=== PATIENT | male | born 1955 | race Caucasian/White ===

== ENCOUNTER 2016-06-04 10:07 | Day surgery (SDC) | payer BC ==
[2016-06-02 09:55] VITALS: BMI 32.7
[~2016-06-04 10:07] MED LIST: LACTATED RINGERS 1,000 ML IV SCH; LIDOCAINE 1% 20 ML VIAL (10MG/ML) FOR IV START INTRADERMA PRN
[2016-06-04 10:39] VITALS: TEMP 98.1
[2016-06-04] MEDS ORDERED: LACTATED RINGERS 1,000 ML IV ONE (10:44)
[2016-06-04] MEDS ORDERED: LIDOCAINE 1% 20 ML VIAL (10MG/ML) FOR IV START INTRADERMA ONE (10:44)
[2016-06-04] MEDS ORDERED: PROPOFOL 10 MG/ML 20 ML VIAL IV ONE (11:09)
--- NOTE | 2016-06-04 11:16 | P.GSHP ---
History of Present Illness H&P Date: 06/04/16 Chief Complaint: Screening colonoscopy This a 60-year-old male referred from Dr. Powers. Patient presents today for screening colonoscopy. He's never had a colonoscopy before. Past Medical History Past Medical History: Hearing Disorder / Deafness, Hypertension History of Any Multi-Drug Resistant Organisms: None Reported Past Surgical History: Hernia Repair Additional Past Surgical History / Comment(s): umbilical Past Anesthesia/Blood Transfusion Reactions: No Reported Reaction Past Psychological History: No Psychological Hx Reported Smoking Status: Former smoker Past Alcohol Use History: Occasional Additional Past Alcohol Use History / Comment(s): QUIT SMOKING 2011, SMOKED FROM AGE 39 3 CIGARETTES DAILY Past Drug Use History: None Reported - Past Family History Mother Family Medical History: Unable to Obtain Additional Family Medical History / Comment(s): states was not raised with parents so unable to give family history Medications and Allergies Home Medications Medication Instructions Recorded Confirmed Type Lisinopril [Prinivil] 20 mg PO DAILY 11/08/15 06/04/16 History Allergies Allergy/AdvReac Type Severity Reaction Status Date / Time No Known Allergies Allergy Verified 06/04/16 10:31 Surgical - Exam Vital Signs Temp Pulse BP Pulse Ox 98.1 F 60 136/66 99 06/04/16 10:38 06/04/16 10:38 06/04/16 10:38 06/04/16 10:38 - General well developed, no distress - Eyes PERRL - ENT normal pinna - Neck no masses - Respiratory normal expansion - Cardiovascular Rhythm: regular - Abdomen Abdomen: soft, non tender Assessment and Plan Plan: We'll perform screening colonoscopy
--- NOTE | 2016-06-04 11:31 | P.OP ---
Date of Procedure: 06/04/16 Preoperative Diagnosis: Screening colonoscopy Postoperative Diagnosis: Normal colon Procedure(s) Performed: Colonoscopy Anesthesia: MAC Surgeon: Irineo Lundberg Pathology: none sent Condition: stable Disposition: PACU Description of Procedure: PROCEDURE: The patient was placed on the endoscopy table in the lateral position. Digital rectal examination was performed which revealed no abnormalities. The prostate was symmetrical without nodules. Flexible colonoscope was then placed in the patient's anus and passed throughout the entire colon. The ileocecal valve was visualized. The cecum, ascending, transverse, descending and sigmoid colon were normal. The rectum was normal as well. There were no masses, polyps or diverticula noted in the entire colon. SUMMARY OF FINDINGS: Normal colonoscopy.
[2016-06-04 11:41] VITALS: RESP 16
[2016-06-04 12:17] VITALS: BP 145/83; PULSE 58
== END 2016-06-04 12:26 | disposition home or self-care (01) ==
LOC: ORWHC2ENDO 10:07
PROVIDERS: ATTEND Surgery
DX: Z12.11 Encounter for screening for malignant neoplasm of colon (principal); I10 Essential (primary) hypertension; Z87.891 Personal history of nicotine dependence; Z79.899 Other long term (current) drug therapy; Z79.891 Long term (current) use of opiate analgesic
CPT/HCPCS: J2704; G0121; 45378

== ENCOUNTER 2021-09-25 11:13 | Inpatient (IN) | payer BC, MEDICARE ==
[2021-09-25] MEDS ORDERED: SODIUM CHLORIDE 0.9% 1,000 ML IV STA (11:57)
[2021-09-25] MEDS ORDERED: ASPIRIN 81 MG PO STA (11:57)
[2021-09-25] MEDS ORDERED: HEPARIN SODIUM 1,000 UN/ML (10ML VL) IV ONE (12:06)
[2021-09-25] MEDS ORDERED: DILTIAZEM 5 MG/ML 5 ML VIAL IVP STA (12:06)
[2021-09-25] MEDS: HEPARIN SOD,PORK IN 0.45% NACL 25,000 UNIT in 0.45% NACL 1 250ML.BAG IV SCH (12:21)
[2021-09-25 12:25] LABS: Basophils # (A) 0.1 k/uL (0-0.2); Basophils % (A) 1 %; Eosinophils # (A) 0.1 k/uL (0-0.7); Eosinophils % (A) 1 %; HCT 47.1 % (39.0-53.0); HGB 14.8 gm/dL (13.0-17.5); Hypochromasia Slight; Lymphocytes # (A) 1.2 k/uL (1.0-4.8); Lymphocytes % (A) 13 %; MCH 29.2 pg (25.0-35.0); MCHC 31.4 g/dL (31.0-37.0); Mean Platelet Volume 8.4; Monocytes # (A) 0.5 k/uL (0-1.0); Monocytes % (A) 6 %; Neutrophils # (A) 6.8 k/uL (1.3-7.7); Neutrophils % (A) 77 %; Platelet Count 243 k/uL (150-450); RBC 5.06 m/uL (4.30-5.90); RDW 14.4 % (11.5-15.5); WBC 8.8 k/uL (3.8-10.6)
--- NOTE | 2021-09-25 12:38 | XR ---
EXAMINATION TYPE: XR chest 2V DATE OF EXAM: 09/25/2021 COMPARISON: NONE HISTORY: Dysrhythmia. TECHNIQUE: Frontal and lateral views of the chest are obtained. FINDINGS: There is cardiomegaly with suspected small to tiny bilateral pleural effusions and mild in terstitial edema. Correlate for CHF exacerbation. Old fractures of the right lateral fifth and sixth ribs are noted. IMPRESSION: As above.
[2021-09-25 12:49] LABS: ALT 23 U/L (4-49); AST 29 U/L (17-59); African American GFR (CKD) >90 (>60 ml/min/1.73 sqM); Albumin 4.2 g/dL (3.5-5.0); Alkaline Phosphatase 104 U/L (38-126); Anion Gap 8 mmol/L; Blood Urea Nitrogen 14 mg/dL (9-20); Calcium 9.4 mg/dL (8.4-10.2); Carbon Dioxide 25 mmol/L (22-30); Chloride 104 mmol/L (98-107); Glucose 116 mg/dL (74-99); Magnesium 1.7 mg/dL (1.6-2.3); Non-African American GFR(CKD) >90 (>60 ml/min/1.73 sqM); Potassium 4.7 mmol/L (3.5-5.1); Sodium 137 mmol/L (137-145); Total Bilirubin 1.1 mg/dL (0.2-1.3); Total Protein 7.1 g/dL (6.3-8.2)
[2021-09-25 12:52] LABS: Partial Thromboplastin Time 23.6 sec (22.0-30.0); Prothrombin Time 10.8 sec (9.0-12.0)
[2021-09-25] MEDS: DILTIAZEM 125 MG in SODIUM CHLORIDE 0.9% 100 ML IV SCH (13:09)
--- NOTE | 2021-09-25 14:38 | ED ---
General Adult HPI - General Chief complaint: Arrhythmia/Palpitations Stated complaint: A-fIB,rvr 150bts Time Seen by Provider: 09/25/21 11:53 Source: patient, RN notes reviewed, old records reviewed Mode of arrival: ambulatory Limitations: no limitations - History of Present Illness Initial comments: Patient is a 66-year-old male with past medical history remarkable for hypertension who presents emergency Department complaining of palpitations for 3 weeks. Was sent from primary care physician's office for tachycardia. Concern for atrial fibrillation. No known history of this for the patient. Patient's twin does have extensive cardiac history. He states he has been experiencing lower extremity swelling, nonproductive cough, as well as palpitations and chest tightness intermittently over the last 3 weeks. Saw his PCP today, who found him to be in A. fib with RVR. Denies any lightheadedness, current chest discomfort, shortness of breath, history of blood clots. Denies any abdominal pain, nausea, vomiting. Patient otherwise has no acute complaints at this time. Presents for further evaluation. - Related Data Home Medications Medication Instructions Recorded Confirmed amLODIPine [Norvasc] 5 mg PO DAILY 09/25/21 09/25/21 hydroCHLOROthiazide 12.5 mg PO DAILY 09/25/21 09/25/21 lisinopriL 40 mg PO DAILY 09/25/21 09/25/21 Allergies Allergy/AdvReac Type Severity Reaction Status Date / Time No Known Allergies Allergy Verified 09/25/21 13:22 Review of Systems ROS Statement: Those systems with pertinent positive or pertinent negative responses have been documented in the HPI. Review of Systems: CONST: Denies fever EYES: Denies blurry vision ENT: Denies nasal congestion C/V: Endorses palpitations RESP: Denies shortness of breath GI: Denies abdominal pain : Denies dysuria SKIN: Denies rash. MSK: Denies joint pain. NEURO: Denies headache ROS Other: All systems not noted in ROS Statement are negative. Past Medical History Past Medical History: Hearing Disorder / Deafness, Hypertension History of Any Multi-Drug Resistant Organisms: None Reported Past Surgical History: Hernia Repair Additional Past Surgical History / Comment(s): umbilical Past Anesthesia/Blood Transfusion Reactions: No Reported Reaction Past Psychological History: No Psychological Hx Reported Smoking Status: Former smoker Past Alcohol Use History: Occasional Past Drug Use History: None Reported - Past Family History Mother Family Medical History: Unable to Obtain Additional Family Medical History / Comment(s): states was not raised with parents so unable to give family history General Exam - General Exam Comments Initial Comments: General: Appears in no acute distress. HEAD: Normal with no signs of head trauma. EYES: PERRLA, EOMI, conjunctiva normal, no discharge. ENT: Hearing grossly intact, normal oropharynx. RESPIRATORY: Clear breath sounds bilaterally. No wheezes, rales, or rhonchi. No hypoxia. No increased work of breathing. C/V: Regular rate and rhythm. S1 and S2 auscultated. Peripheral pulses 2+ and intact throughout. 1-2+ pitting edema bilateral lower extremities is symmetrical. ABD: Abd is soft, nontender, nondistended EXT: Normal range of motion, no obvious deformity SKIN: No rashes or lesions observed on exposed skin. NEURO: Alert and oriented 4. 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 Vital signs are within normal limits except for his tachycardia with a regular rhythm. EKG shows atrial flutter ablation with RVR with no signs of acute ischemic process. We'll obtain cardiac labs. Chest x-ray will be obtained. Patiently started on heparin drip, Cardizem drip, will be bolus 10 mg IV Cardizem. Will be given 324 mg of aspirin. He was in agreement with this plan. Chest x-ray shows bilateral pulmonary edema, as well as a small right-sided pleural effusion. Laboratory studies are remarkable for an elevated d-dimer of 1.15. Troponin is undetectable. BNP is elevated for the patient's age to 2450. On reevaluation, patient's heart rate is now rate controlled varying from 95-110 beats per minute on average. He is on a 5 mg Cardizem drip. He remains otherwise hemodynamically stable otherwise. Vital signs within normal limits. Discussed with him the results of his laboratory studies. Recommended obtaining a CT angiogram to rule out pulmonary was which she was in agreement. CT PE showed no signs of pulmonary embolus and. Does have a small right-sided pleural effusion. After the patient on the CT imaging. He expressed understanding.. Patient will be admitted to a telemetry bed on his heparin drip and Cardizem drip for atrial fibrillation with RVR. He was in agreement this plan. Vital signs remain within normal limits at this time. He is asymptomatic at this time. Will be started on 40 valentin grams IV Lasix twice a day, however I do believe that a portion of his volume overload state is likely related to his atrial fibrillation likely been present for the last 3 weeks, undetected. Echo was ordered. Cardiology will be consulted. I spoke with the admitting physician, Dr. Benedict who accepted the patient was in agreement with the plan. Patient was admitted in stable condition to telemetry bed. - Lab Data Result diagrams: 09/25/21 12:09 09/25/21 12:09 Lab Results 09/25/21 09/25/21 09/25/21 Range/Units 12:09 12:09 12:09 WBC 8.8 (3.8-10.6) k/uL RBC 5.06 (4.30-5.90) m/uL Hgb 14.8 (13.0-17.5) gm/dL Hct 47.1 (39.0-53.0) % MCV 93.0 (80.0-100.0) fL MCH 29.2 (25.0-35.0) pg MCHC 31.4 (31.0-37.0) g/dL RDW 14.4 (11.5-15.5) % Plt Count 243 (150-450) k/uL MPV 8.4 Neutrophils % 77 % Lymphocytes % 13 % Monocytes % 6 % Eosinophils % 1 % Basophils % 1 % Neutrophils # 6.8 (1.3-7.7) k/uL Lymphocytes # 1.2 (1.0-4.8) k/uL Monocytes # 0.5 (0-1.0) k/uL Eosinophils # 0.1 (0-0.7) k/uL Basophils # 0.1 (0-0.2) k/uL Hypochromasia Slight PT 10.8 (9.0-12.0) sec INR 1.0 (<1.2) APTT 23.6 (22.0-30.0) sec D-Dimer 1.15 H (<0.60) mg/L FEU Sodium 137 (137-145) mmol/L Potassium 4.7 (3.5-5.1) mmol/L Chloride 104 (98-107) mmol/L Carbon Dioxide 25 (22-30) mmol/L Anion Gap 8 mmol/L BUN 14 (9-20) mg/dL Creatinine 0.75 (0.66-1.25) mg/dL Est GFR (CKD-EPI)AfAm >90 (>60 ml/min/1.73 sqM) Est GFR (CKD-EPI)NonAf >90 (>60 ml/min/1.73 sqM) Glucose 116 H (74-99) mg/dL Calcium 9.4 (8.4-10.2) mg/dL Magnesium 1.7 (1.6-2.3) mg/dL Total Bilirubin 1.1 (0.2-1.3) mg/dL AST 29 (17-59) U/L ALT 23 (4-49) U/L Alkaline Phosphatase 104 (38-126) U/L Troponin I (0.000-0.034) ng/mL NT-Pro-B Natriuret Pep pg/mL Total Protein 7.1 (6.3-8.2) g/dL Albumin 4.2 (3.5-5.0) g/dL TSH 4.870 H (0.465-4.680) mIU/L 09/25/21 09/25/21 Range/Units 12:09 12:10 WBC (3.8-10.6) k/uL RBC (4.30-5.90) m/uL Hgb (13.0-17.5) gm/dL Hct (39.0-53.0) % MCV (80.0-100.0) fL MCH (25.0-35.0) pg MCHC (31.0-37.0) g/dL RDW (11.5-15.5) % Plt Count (150-450) k/uL MPV Neutrophils % % Lymphocytes % % Monocytes % % Eosinophils % % Basophils % % Neutrophils # (1.3-7.7) k/uL Lymphocytes # (1.0-4.8) k/uL Monocytes # (0-1.0) k/uL Eosinophils # (0-0.7) k/uL Basophils # (0-0.2) k/uL Hypochromasia PT (9.0-12.0) sec INR (<1.2) APTT (22.0-30.0) sec D-Dimer (<0.60) mg/L FEU Sodium (137-145) mmol/L Potassium (3.5-5.1) mmol/L Chloride (98-107) mmol/L Carbon Dioxide (22-30) mmol/L Anion Gap mmol/L BUN (9-20) mg/dL Creatinine (0.66-1.25) mg/dL Est GFR (CKD-EPI)AfAm (>60 ml/min/1.73 sqM) Est GFR (CKD-EPI)NonAf (>60 ml/min/1.73 sqM) Glucose (74-99) mg/dL Calcium (8.4-10.2) mg/dL Magnesium (1.6-2.3) mg/dL Total Bilirubin (0.2-1.3) mg/dL AST (17-59) U/L ALT (4-49) U/L Alkaline Phosphatase (38-126) U/L Troponin I <0.012 (0.000-0.034) ng/mL NT-Pro-B Natriuret Pep 2450 pg/mL Total Protein (6.3-8.2) g/dL Albumin (3.5-5.0) g/dL TSH (0.465-4.680) mIU/L - EKG Data -: EKG Interpreted by Me EKG Comments: 12-lead Electrocardiogram Interpretation Note EKG was reviewed and interpreted by myself. 12-lead ECG performed at 1150 is interpreted by me as revealing atrial fibrillation with RVR at a rate of 145 beats per minute. [place] is normal. QRS duration is 85 ms. QTC is 379 ms.. There were no ST or T wave abnormalities to suggest myocardial ischemia or injury. R wave progression across the precordium was satisfactory. By my interpretation this EKG is non-diagnostic for acute ischemia. Critical Care Time Critical Care Time: Yes Total Critical Care Time: 35 Critical Care Time: Upon my evaluation, this patient had a high probability of imminent or life- threatening deterioration due to atrial fibrillation with RVR, heparin initiation, heart failure, which required my direct attention, intervention, and personal management. I have personally provided 35 minutes of critical care time exclusive of time spent on separately billable procedures. Time includes review of laboratory data, radiology results, discussion with consultants, and monitoring for potential decompensation. Interventions were performed as documented in my note. Disposition Clinical Impression: Atrial fibrillation with RVR, CHF (congestive heart failure) Disposition: ADMITTED IP TO THIS HOSP Condition: Stable Referrals: Miriam Benedict MD [Primary Care Provider] - 1-2 days Time of Disposition: 14:40
--- NOTE | 2021-09-25 14:39 | CT ---
CT CHEST FOR PULMONARY EMBOLISM. EXAMINATION TYPE: CT chest angio for PE DATE OF EXAM: 09/25/2021 INDICATION: Elevated D-dimer. Concern for PE CT DLP: 664.5 mGycm, Automated exposure control for dose reduction was used. CONTRAST: Patient injected with 100 ml mL of Isovue 370. COMPARISON: None TECHNIQUE: CT of the chest is performed on a spiral scan at 2 mm thick sections. Study is performed with intravenous contrast timed for evaluation for pulmonary embolism. This will limit additional po rtions of the evaluation. 3-D MIP images reconstructed by the technologist are reviewed on the compu ter in the coronal and sagittal planes. FINDINGS: No persistent filling defects are evident to suggest an acute pulmonary embolism. No mediastinal or hilar adenopathy enlarged by CT criteria is evident. The ascending aorta diameter at the level of the main pulmonary artery is 3.7 cm. The main pulmonary artery diameter at the bifur cation is 3.2 cm. Small right pleural effusion is present. Some compressive atelectasis adjacent to the right pleural e ffusion. Limited CT section through the upper abdomen are unremarkable. IMPRESSIONS: 1. No acute pulmonary embolism. 2. Small right pleural effusion
[2021-09-25] MEDS ORDERED: NALOXONE 0.4 MG/ML 1 ML VIAL IV PRN (14:57)
[2021-09-25] MEDS ORDERED: ONDANSETRON 4 MG/2 ML VIAL IVP PRN (14:57)
[2021-09-25] MEDS: FUROSEMIDE 10 MG/ML 4 ML VIAL IV SCH ×2 (18:02→20:36)
[2021-09-25] MEDS: HEPARIN SODIUM 1,000 UN/ML (10ML VL) IV PRN (20:36)
[2021-09-26] MEDS: DILTIAZEM 125 MG in SODIUM CHLORIDE 0.9% 100 ML IV SCH (00:19)
[2021-09-26] MEDS ORDERED: ALPRAZolam 0.25 MG TAB PO PRN ×2 (01:01→01:06)
[2021-09-26 04:04] LABS: Basophils # (A) 0.1 k/uL (0-0.2); Basophils % (A) 1 %; Eosinophils # (A) 0.3 k/uL (0-0.7); Eosinophils % (A) 3 %; HCT 45.8 % (39.0-53.0); HGB 14.2 gm/dL (13.0-17.5); Hypochromasia Moderate; Lymphocytes % (A) 23 %; MCH 29.4 pg (25.0-35.0); MCV 94.8 fL (80.0-100.0); Mean Platelet Volume 8.6; Monocytes # (A) 0.7 k/uL (0-1.0); Monocytes % (A) 8 %; Neutrophils # (A) 5.6 k/uL (1.3-7.7); Neutrophils % (A) 64 %; Platelet Count 209 k/uL (150-450); RBC 4.83 m/uL (4.30-5.90); RDW 14.3 % (11.5-15.5); WBC 8.8 k/uL (3.8-10.6)
[2021-09-26 04:14] LABS: African American GFR (CKD) >90 (>60 ml/min/1.73 sqM); Anion Gap 6 mmol/L; Blood Urea Nitrogen 12 mg/dL (9-20); Calcium 8.9 mg/dL (8.4-10.2); Carbon Dioxide 28 mmol/L (22-30); Chloride 104 mmol/L (98-107); Glucose 120 mg/dL (74-99); Non-African American GFR(CKD) >90 (>60 ml/min/1.73 sqM); Potassium 4.2 mmol/L (3.5-5.1); Sodium 138 mmol/L (137-145)
[2021-09-26 04:22] LABS: INR 1.1 (<1.2); Partial Thromboplastin Time 78.1 sec (22.0-30.0); Prothrombin Time 11.5 sec (9.0-12.0)
[2021-09-26 05:44] LABS: Appearance,Urine Clear (Clear); Bilirubin,Urine Negative (Negative); Blood,Urine Negative (Negative); Color,Urine Light Yellow; Glucose,Urine (UA) Negative (Negative); Ketones,Urine Negative (Negative); Leukocyte Esterase,Urine Negative (Negative); Nitrite,Urine Negative (Negative); PH, Urine 5.5 (5.0-8.0); Protein,Urine Negative (Negative); Specific Gravity,Urine 1.013 (1.001-1.035); Urobilinogen,Urine <2.0 mg/dL (<2.0)
[2021-09-26] MEDS: FUROSEMIDE 10 MG/ML 4 ML VIAL IV SCH ×2 (08:49→20:05)
[2021-09-26] MEDS ORDERED: lisinopriL 10 MG TAB PO SCH (10:00)
[2021-09-26] MEDS: METOPROLOL SUCCINATE (ER) 50 MG TAB.ER.24H PO SCH (11:33)
[2021-09-26] MEDS: HEPARIN SODIUM 1,000 UN/ML (10ML VL) IV PRN (11:42)
--- NOTE | 2021-09-26 12:54 | P.CRDCN ---
History of Present Illness History of present illness: HISTORY OF PRESENTING ILLNESS This is a pleasant 66-year-old male with past medical history of hypertension chronic nicotine dependence. 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 We have been consulted for new onset atrial fibrillation. Patient presents to the hospital with worsening bilateral lower extremity edema, weight gain, orthopnea, PND, shortness of breath, and palpitations . He notices symptoms started about one week ago and continued to worsen. He presented to the ER for further evaluation. He was found to be in atrial fibrillation with rapid ventricular response, heart rate in the 140s and also with signs and symptoms of congestive heart failure. He was started on IV diuresis, IV Cardizem and IV heparin. He denies any history of CAD, CO, stroke, heart failure, atrial fibrillation. He currently smokes one pack per day. Denies any alcohol or illicit drug use. Denies any known family history of coronary artery disease. DIAGNOSTICS EKG reveals atrial fibrillation with rapid ventricular response, heart rate 145. Telemetry tracings indicate atrial fibrillation with heart rate [id number] CTA revealed no evidence of pulmonary embolism. Small right pleural effusion. Laboratory reviewed, troponin negative 3, proBNP 2450, d-dimer 1.15, CBC unremarkable, sodium 138, potassium 4.2, BUN 12, serum creatinine 0.7, TSH 4.8 Current home medications include lisinopril 40 mg daily, hydrochlorothiazide 12.5 mg daily, amlodipine 5 mg daily REVIEW OF SYSTEMS At the time of my exam: CONSTITUTIONAL: Denies fever or chills. CARDIOVASCULAR: Denies chest pain, +shortness of breath, +orthopnea,+PND +palpitations. +LE edema +weight gain RESPIRATORY: Denies cough. GASTROINTESTINAL: Denies abdominal pain, diarrhea, constipation, nausea or vomiting. MUSCULOSKELETAL: Denies myalgias. NEUROLOGIC: Denies numbness, tingling, headacbe or weakness. ENDOCRINE: Denies fatigue,, polydipsia or polyurina. GENITOURINARY: Denies burning, hematuria or urgency with micturation. HEMATOLOGIC: Denies history of anemia or bleeding. PHYSICAL EXAMINATION Vitals blood pressure 136/93, heart rate 71, afebrile, saturations 94% on room air CONSTITUTIONAL: No apparent distress. HEENT: Head is normocephalic. Pupils are equal, round. Sclerae anicteric. Mucous membranes of the mouth are moist. JVD present CHEST EXAMINATION: Lungs with crackles in bilateral bases to auscultation. No ch est wall tenderness is noted on palpation or with deep breathing. HEART EXAMINATION: Irregular rate and rhythm. S1, S2 heard. No murmurs, gallops or rub. ABDOMEN: Soft, nontender. Positive bowel sounds. EXTREMITIES: 2+ peripheral pulses,Bilateral 3+ pitting lower extremity edema and no calf tenderness. SKIN: warm, dry NEUROLOGIC EXAMINATION: Patient is awake, alert and oriented x3. ASSESSMENT New onset paroxysmal atrial fibrillation with RVR -[id number] score 3 Acute heart failure exacerbation, unknown EF, echo pending History of hypertension Chronic nicotine dependence PLAN 2D echocardiogram IV Lasix 40mg BID Monitor renal function, electrolytes, I/Os, daily weights Continue IV Cardizem, wean off as able Metoprolol succinate 50mg daily Monitor BP and restart patient's Lisinopril TSH elevated, recommend evaluate thyroid studies Continue IV heparin at this time, Case management consulted for Xarelto coverage NPO after midnight if intervention/cardioversion is indicated Further recommendations based on clinical course Nurse practitioner note has been reviewed by physician. Signing provider agrees with the documented findings, assessment, and plan of care. 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 STATES HE JUST FOUND OUT TODAY HIS TWIN BROTHER ALSO HAS CARDIAC ISSUES Medications and Allergies Home Medications Medication Instructions Recorded Confirmed Type amLODIPine [Norvasc] 5 mg PO DAILY 09/25/21 09/25/21 History hydroCHLOROthiazide 12.5 mg PO DAILY 09/25/21 09/25/21 History lisinopriL 40 mg PO DAILY 09/25/21 09/25/21 History Rivaroxaban [Xarelto] 20 mg PO DAILY #30 tab 09/26/21 Rx Allergies Allergy/AdvReac Type Severity Reaction Status Date / Time No Known Allergies Allergy Verified 09/25/21 13:22 Physical Exam Vitals: Vital Signs Temp Pulse Pulse Resp BP BP Pulse Ox 09/26/21 04:00 97.4 F L 87 18 146/94 96 09/26/21 02:00 18 09/25/21 23:20 97.6 F 90 18 136/92 96 09/25/21 20:50 97.6 F 73 18 128/91 96 09/25/21 20:00 18 09/25/21 15:42 97.6 F 95 19 146/96 95 09/25/21 11:46 155 H 09/25/21 11:39 98.5 F 142 H 20 107/83 96 Intake and Output 09/25/21 09/26/21 09/26/21 22:59 06:59 14:59 Intake Total 92.667 215.503 Output Total 400 2325 Balance -307.333 -2109.497 Intake: IV 10 Invasive Line 1 10 Intake, IV Titration 82.667 215.503 Amount Diltiazem 125 mg In 109.667 Sodium Chloride 0.9% 100 ml @ Per Protocol IV .Q0M [facility] Rx#:[id number] Heparin Sod,Pork in 0.45% 82.667 105.836 NaCl 25,000 unit In 0.45 % NaCl 1 250ml.bag @ 8. 545 UNITS/KG/HR 10 mls/hr IV .Q24H [facility] Rx#: [id number] Output: Urine 400 2325 Other: Voiding Method Toilet Toilet Urinal Urinal # Voids 1 Weight 117.027 kg 114.4 kg Results 09/26/21 03:30 09/26/21 03:30 Cardiac Enzymes 09/25/21 09/25/21 09/25/21 Range/Units 12:09 12:09 16:26 AST 29 (17-59) U/L Troponin I <0.012 <0.012 (0.000-0.034) ng/mL 09/25/21 Range/Units 18:12 AST (17-59) U/L Troponin I 0.012 (0.000-0.034) ng/mL Coagulation 09/25/21 09/25/21 09/26/21 Range/Units 12:09 18:12 03:30 PT 10.8 11.5 (9.0-12.0) sec APTT 23.6 26.0 78.1 H (22.0-30.0) sec CBC 09/25/21 09/26/21 Range/Units 12:09 03:30 WBC 8.8 8.8 (3.8-10.6) k/uL RBC 5.06 4.83 (4.30-5.90) m/uL Hgb 14.8 14.2 (13.0-17.5) gm/dL Hct 47.1 45.8 (39.0-53.0) % Plt Count 243 209 (150-450) k/uL Comprehensive Metabolic Panel 09/25/21 09/26/21 Range/Units 12:09 03:30 Sodium 137 138 (137-145) mmol/L Potassium 4.7 4.2 (3.5-5.1) mmol/L Chloride 104 104 (98-107) mmol/L Carbon Dioxide 25 28 (22-30) mmol/L BUN 14 12 (9-20) mg/dL Creatinine 0.75 0.75 (0.66-1.25) mg/dL Glucose 116 H 120 H (74-99) mg/dL Calcium 9.4 8.9 (8.4-10.2) mg/dL AST 29 (17-59) U/L ALT 23 (4-49) U/L Alkaline Phosphatase 104 (38-126) U/L Total Protein 7.1 (6.3-8.2) g/dL Albumin 4.2 (3.5-5.0) g/dL Current Medications Generic Name Dose Route Start Last Admin Trade Name Freq PRN Reason Stop Dose Admin Alprazolam 0.25 mg 09/26/21 01:06 09/26/21 01:47 Alprazolam 0.25 Mg Tab PO 0.25 mg QID PRN Administration Anxiety Furosemide 40 mg 09/25/21 14:45 09/25/21 20:36 Furosemide 10 Mg/Ml 4 Ml Vial IV 40 mg Q12HR [facility] Administration Heparin Sodium (Porcine) 0 unit 09/25/21 12:06 09/25/21 20:36 Heparin Sodium 1,000 Un/Ml (10ml Vl) IV 4,000 unit PER PROTOCOL PRN Administration Low PTT Protocol Heparin Sodium/Sodium Chloride 250 mls @ 10 mls/hr 09/25/21 12:15 09/26/21 04:27 25,000 unit/ Sodium Chloride IV 9.545 units/kg/hr .Q24H [facility] 11.17 mls/hr Titration Protocol 8.545 UNITS/KG/HR Diltiazem HCl 125 mg/ Sodium 125 mls @ 0 mls/hr 09/25/21 12:15 09/26/21 00:19 Chloride IV 10 mg/hr .Q0M [facility] 10 mls/hr Administration Protocol Per Protocol Naloxone HCl 0.2 mg 09/25/21 14:57 Naloxone 0.4 Mg/Ml 1 Ml Vial IV Q2M PRN Opioid Reversal Ondansetron HCl 4 mg 09/25/21 14:57 Ondansetron 4 Mg/2 Ml Vial IVP Q8HR PRN Nausea And Vomiting Intake and Output 09/25/21 09/26/21 09/26/21 22:59 06:59 14:59 Intake Total 92.667 215.503 Output Total 400 2325 Balance -307.333 -2109.497 Intake: IV 10 Invasive Line 1 10 Intake, IV Titration 82.667 215.503 Amount Diltiazem 125 mg In 109.667 Sodium Chloride 0.9% 100 ml @ Per Protocol IV .Q0M [facility] Rx#:[id number] Heparin Sod,Pork in 0.45% 82.667 105.836 NaCl 25,000 unit In 0.45 % NaCl 1 250ml.bag @ 8. 545 UNITS/KG/HR 10 mls/hr IV .Q24H [facility] Rx#: [id number] Output: Urine 400 2325 Other: Voiding Method Toilet Toilet Urinal Urinal # Voids 1 Weight 117.027 kg 114.4 kg 09/26/21 03:30 09/26/21 03:30
[2021-09-26 13:33] LABS: T4, Free (Free Thyroxine) 1.2 ng/dL (0.78-2.19)
[2021-09-26] MEDS: HEPARIN SOD,PORK IN 0.45% NACL 25,000 UNIT in 0.45% NACL 1 250ML.BAG IV SCH (14:07)
--- NOTE | 2021-09-26 15:00 | CA ---
Transthoracic Echo Report Name: Mitul Rangel Age: 66 Gender: M : 1955 Exam Date: 09/25/2021 14:57 Exam Location: [place] [facility] Ht (in): 70 Wt (lb): 258 Ordering Physician: Bhaskar So MD Attending/Referring Phys: University Controller Anju Rodríguez RDCS Procedure CPT: Indications: New Onset Atrial Fibrillation Cardiac Hx: Technical Quality: Technically difficult study Contrast 1: Lumason Total Dose (mL): 4 Contrast 2: Total Dose (mL): MEASUREMENTS (Male / Female) Normal Values 2D ECHO LV Diastolic Diameter PLAX 5.0 cm 4.2 - 5.9 / 3.9 - 5.3 cm LV Systolic Diameter PLAX 4.4 cm IVS Diastolic Thickness 1.3 cm 0.6 - 1.0 / 0.6 - 0.9 cm LVPW Diastolic Thickness 1.5 cm 0.6 - 1.0 / 0.6 - 0.9 cm LV Relative Wall Thickness 0.6 RV Internal Dim ED PLAX 3.3 cm LV Diastolic Volume MOD BP 110.5 cm??? 67 - 155 / 56 - 104 cm??? LV Systolic Volume MOD BP 88.0 cm??? 22 - 58 / 19 - 49 cm??? LV Ejection Fraction MOD BP 20.4 % >= 55 % LV Cardiac Index MOD BP 946.3 cm???/min???m??? LV Diastolic Volume MOD 4C 110.6 cm??? LV Systolic Volume MOD 4C 79.0 cm??? LV Ejection Fraction MOD 4C 28.6 % LV Cardiac Index MOD 4C 1330.0 cm???/min???m??? LV Diastolic Length 4C 7.4 cm LV Systolic Length 4C 6.6 cm LV Diastolic Volume MOD 2C 103.6 cm??? LV Systolic Volume MOD 2C 92.7 cm??? LV Ejection Fraction MOD 2C 10.6 % LV Cardiac Index MOD 2C 459.7 cm???/min???m??? LV Diastolic Length 2C 7.9 cm LV Systolic Length 2C 7.1 cm LA Volume 75.7 cm??? 18 - 58 / 22 - 52 cm??? M-MODE Aortic Root Diameter MM 2.7 cm DOPPLER AV Peak Velocity 122.9 cm/s AV Peak Gradient 6.0 mmHg LVOT Peak Velocity 110.9 cm/s LVOT Peak Gradient 4.9 mmHg TR Peak Velocity 227.6 cm/s TR Peak Gradient 20.7 mmHg Right Ventricular Systolic Press 24.0 mmHg FINDINGS Left Ventricle Mildly increased septal wall thickness. Severely increased left ventricular systolic volume. Severely decreased left ventricular ejection fraction. Left ventricular ejection fraction is estimated at 20-25 %. Reduced global left ventricular systolic function. Right Ventricle Right ventricle not well visualized. Right Atrium Right atrium not well visualized. Left Atrium Moderately increased left atrial volume. Mitral Valve Structurally normal mitral valve. Nwid-[id number] mitral regurgitation. Aortic Valve No aortic valve stenosis or regurgitation. Tricuspid Valve Mild tricuspid regurgitation. Pulmonic Valve Pulmonic valve not well visualized. Pericardium No pericardial effusion. Aorta Normal size aortic root and proximal ascending aorta. CONCLUSIONS Severe LV dysfunction ejection fraction less than 25% Previewed by: Dr. Lacne Flowers MD (Electronically Signed) Final Date: 26 September 2021 14:59
--- NOTE | 2021-09-26 19:18 | P.HPIM ---
History of Present Illness H&P Date: 09/26/21 Mitul Rangel, a 66-year-old male who presented to [facility] emergency room with a chief complaint of worsening shortness of breath He was evaluated in the emergency room vital examination on presentation revealed a temperature of 98.5 pulse 142 respiration 20 blood pressure 107/83 pulse ox 96% on room air Laboratory data reveals a white blood count of 8.8 hemoglobin 14.2 platelet count 209 sodium 138 potassium 4.2 chloride 104 CO2 28 BUN 12 creatinine 0.75 troponin less than 0.012 Testing in the emergency room revealed CT angiogram of the chest revealed no acute pulmonary embolism, EKG revealed evidence of atrial fibrillation with rapid ventricular response patient was started on IV heparin and IV Cardizem. Patient was admitted to medical floor for further evaluation and treatment Past Medical History Past Medical History: Hearing Disorder / Deafness, Hypertension History of Any Multi-Drug Resistant Organisms: None Reported Past Surgical History: Hernia Repair Additional Past Surgical History / Comment(s): umbilical Past Anesthesia/Blood Transfusion Reactions: No Reported Reaction Past Psychological History: No Psychological Hx Reported Smoking Status: Current every day smoker Past Alcohol Use History: Occasional Additional Past Alcohol Use History / Comment(s): PT STATES HE IS A [employer] Past Drug Use History: None Reported - Past Family History Mother Family Medical History: Unable to Obtain Additional Family Medical History / Comment(s): states was not raised with parents so unable to give family history Brother(s) Family Medical History: Congestive Heart Failure (CHF) Additional Family Medical History / Comment(s): PT. STATES HE JUST FOUND OUT TODAY HIS TWIN BROTHER ALSO HAS CARDIAC ISSUES Medications and Allergies Home Medications Medication Instructions Recorded Confirmed Type amLODIPine [Norvasc] 5 mg PO DAILY 09/25/21 09/25/21 History hydroCHLOROthiazide 12.5 mg PO DAILY 09/25/21 09/25/21 History lisinopriL 40 mg PO DAILY 09/25/21 09/25/21 History Rivaroxaban [Xarelto] 20 mg PO DAILY #30 tab 09/26/21 Rx Allergies Allergy/AdvReac Type Severity Reaction Status Date / Time No Known Allergies Allergy Verified 09/25/21 13:22 Physical Exam Vitals: Vital Signs Temp Pulse Pulse Resp BP BP Pulse Ox 09/26/21 08:19 98.1 F 71 18 136/93 94 L 09/26/21 04:00 97.4 F L 87 18 146/94 96 09/26/21 02:00 18 09/25/21 23:20 97.6 F 90 18 136/92 96 09/25/21 20:50 97.6 F 73 18 128/91 96 09/25/21 20:00 18 09/25/21 15:42 97.6 F 95 19 146/96 95 09/25/21 11:46 155 H 09/25/21 11:39 98.5 F 142 H 20 107/83 96 Intake and Output 09/25/21 09/26/21 09/26/21 22:59 06:59 14:59 Intake Total 92.667 215.503 118 Output Total 400 2325 Balance -307.333 -2109.497 118 Intake: IV 10 Invasive Line 1 10 Intake, IV Titration 82.667 215.503 Amount Diltiazem 125 mg In 109.667 Sodium Chloride 0.9% 100 ml @ Per Protocol IV .Q0M [facility] Rx#:[id number] Heparin Sod,Pork in 0.45% 82.667 105.836 NaCl 25,000 unit In 0.45 % NaCl 1 250ml.bag @ 8. 545 UNITS/KG/HR 10 mls/hr IV .Q24H [facility] Rx#: [id number] Oral 118 Output: Urine 400 2325 Other: Voiding Method Toilet Toilet Toilet Urinal Urinal # Voids 1 Weight 117.027 kg 114.4 kg In general patient is alert and oriented x 3 in no distress HEENT head normocephalic and atraumatic Neck is supple no JVD no goiter no lymphadenopathy no carotid bruit Chest examination is clear to auscultation no crackles no wheezing Cardiac exam reveals irregular heart sounds S1 and S2, with tachycardia no gallops no murmurs Abdomen is soft nontender no organomegaly with normal bowel sounds Extremity exam reveals no edema no cyanosis or clubbing Neurological examination reveals no gross focal deficits Results CBC & Chem 7: 09/26/21 03:30 09/26/21 03:30 Labs: Abnormal Lab Results - Last 24 Hours (Table) 09/25/21 09/25/21 09/26/21 Range/Units 12:09 12:09 03:30 APTT 78.1 H (22.0-30.0) sec D-Dimer 1.15 H (<0.60) mg/L FEU Glucose 116 H (74-99) mg/dL TSH 4.870 H (0.465-4.680) mIU/L 09/26/21 Range/Units 03:30 APTT (22.0-30.0) sec D-Dimer (<0.60) mg/L FEU Glucose 120 H (74-99) mg/dL TSH (0.465-4.680) mIU/L Thrombosis Risk Factor Assmnt - Choose All That Apply Any of the Below Risk Factors Present?: Yes Each Factor Represents 1 point: Heart failure (<1month), Obesity (BMI >25) Other Risk Factors: Yes Each Risk Factor Represents 2 Points: Age 61-74 years Other congenital or acquired thrombophilia - If yes, enter type in comment: No Thrombosis Risk Factor Assessment Total Risk Factor Score: 4 Thrombosis Risk Factor Assessment Level: Moderate Risk Assessment and Plan Plan: New-onset atrial fibrillation with rapid ventricular response Shortness of breath with chest x-ray suggestive of acute exacerbation of congestive heart failure will check echocardiogram Underlying history of hypertension History of chronic tobacco use History of hearing impairment Patient is admitted to telemetry floor He was started on IV Lasix He was started on IV Cardizem and IV heparin in the emergency room Cardiology consultation was requested Home medications reviewed and reordered Will follow closely
[2021-09-27] MEDS: DILTIAZEM 125 MG in SODIUM CHLORIDE 0.9% 100 ML IV SCH (00:30)
[2021-09-27] MEDS: HEPARIN SOD,PORK IN 0.45% NACL 25,000 UNIT in 0.45% NACL 1 250ML.BAG IV SCH (03:41)
[2021-09-27] MEDS: lisinopriL 20 MG TAB PO SCH (08:12)
[2021-09-27] MEDS: FUROSEMIDE 10 MG/ML 4 ML VIAL IV SCH ×2 (08:12→21:15)
[2021-09-27] MEDS: METOPROLOL SUCCINATE (ER) 50 MG TAB.ER.24H PO SCH (08:12)
[2021-09-27] MEDS ORDERED: METOPROLOL SUCCINATE (ER) 25 MG TAB.ER.24H PO STA (10:34)
[2021-09-27 10:53] LABS: Basophils # (A) 0.1 k/uL (0-0.2); Basophils % (A) 1 %; Eosinophils # (A) 0.2 k/uL (0-0.7); Eosinophils % (A) 2 %; HCT 47.9 % (39.0-53.0); HGB 14.9 gm/dL (13.0-17.5); Hypochromasia Slight; Lymphocytes # (A) 1.4 k/uL (1.0-4.8); Lymphocytes % (A) 21 %; MCH 29.5 pg (25.0-35.0); MCHC 31.2 g/dL (31.0-37.0); MCV 94.5 fL (80.0-100.0); Mean Platelet Volume 8.3; Monocytes # (A) 0.5 k/uL (0-1.0); Monocytes % (A) 7 %; Neutrophils # (A) 4.5 k/uL (1.3-7.7); Neutrophils % (A) 67 %; Platelet Count 221 k/uL (150-450); RBC 5.07 m/uL (4.30-5.90); RDW 14.1 % (11.5-15.5); WBC 6.8 k/uL (3.8-10.6)
[2021-09-27 11:12] LABS: ALT 21 U/L (4-49); AST 31 U/L (17-59); African American GFR (CKD) >90 (>60 ml/min/1.73 sqM); Albumin 4.5 g/dL (3.5-5.0); Alkaline Phosphatase 111 U/L (38-126); Anion Gap 7 mmol/L; Blood Urea Nitrogen 14 mg/dL (9-20); Calcium 9.6 mg/dL (8.4-10.2); Carbon Dioxide 35 mmol/L (22-30); Chloride 98 mmol/L (98-107); Glucose 116 mg/dL (74-99); Non-African American GFR(CKD) >90 (>60 ml/min/1.73 sqM); Potassium 4.4 mmol/L (3.5-5.1); Sodium 140 mmol/L (137-145); Total Bilirubin 1.1 mg/dL (0.2-1.3); Total Protein 7.8 g/dL (6.3-8.2)
[2021-09-27] MEDS: SPIRONOLACTONE 25 MG TAB PO SCH (12:51)
[2021-09-27] MEDS: ASPIRIN 81 MG PO SCH (12:51)
--- NOTE | 2021-09-27 14:51 | P.PN ---
Subjective This is a pleasant 66-year-old male with past medical history of hypertension chronic nicotine dependence. 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 We have been consulted for new onset atrial fibrillation. Patient presents to the hospital with worsening bilateral lower extremity edema, weight gain, orthopnea, PND, shortness of breath, and palpitations . He notices symptoms started about one week ago and continued to worsen. He presented to the ER for further evaluation. He was found to be in atrial fibrillation with rapid ventricular response, heart rate in the 140s and also with signs and symptoms of congestive heart failure. He was started on IV diuresis, IV Cardizem and IV heparin. He denies any history of CAD, MO, stroke, heart failure, atrial fibrillation. He currently smokes one pack per day. Denies any alcohol or illicit drug use. Denies any known family history of coronary artery disease. 09/27/2021 Patient seen and examined at bedside, no acute distress. He continues to be short of breath and bilateral lower extremity edema. His symptoms improved. Echocardiogram revealed an EF 20-25% with global reduction of left ventricular systolic motion PHYSICAL EXAMINATION Vitals reviewed CONSTITUTIONAL: No apparent distress. HEENT: Head is normocephalic. Pupils are equal, round. Sclerae anicteric. Mucous membranes of the mouth are moist. JVD present CHEST EXAMINATION: Lungs with crackles in bilateral bases to auscultation. No chest wall tenderness is noted on palpation or with deep breathing. HEART EXAMINATION: Irregular rate and rhythm. S1, S2 heard. No murmurs, gallops or rub. ABDOMEN: Soft, nontender. Positive bowel sounds. EXTREMITIES: 2+ peripheral pulses,Bilateral 2-3+ pitting lower extremity edema and no calf tenderness. SKIN: warm, dry NEUROLOGIC EXAMINATION: Patient is awake, alert and oriented x3. ASSESSMENT New onset paroxysmal atrial fibrillation with RVR -[id number] score 3 Acute heart heart failure with reduced ejection fraction EF of 2024 % with global reduction in LV systolic function History of hypertension Chronic nicotine dependence PLAN IV Lasix 40mg BID Stop IV Cardizem Increase Metoprolol succinate 75mg daily Add aldactone Lisinopril 10mg daily Monitor renal function, electrolytes, I/Os, daily weights Case management consult for Xarelto covered, patient has coverage with $38 copay Will consider cardioversion, can also be done as an outpatient Patient will also need cardiac catheterization in near future Further recommendations based on clinical course Nurse practitioner note has been reviewed by physician. Signing provider agrees with the documented findings, assessment, and plan of care. Objective - Vital Signs Vital signs: Vital Signs Temp 97.8 F 09/27/21 08:12 Pulse 81 09/27/21 12:48 Resp 16 09/27/21 08:12 BP 139/83 09/27/21 12:48 Pulse Ox 95 09/27/21 12:48 FiO2 Intake & Output 09/26/21 09/27/21 09/27/21 18:59 06:59 18:59 Intake Total 304.497 183.299 Output Total 3825 Balance 304.497 -3641.701 Weight 112.3 kg 111 kg Intake: Intake, IV Titration 186.497 183.299 Amount Diltiazem 125 mg In 125 Sodium Chloride 0.9% 100 ml @ Per Protocol IV .Q0M [facility] Rx#:[id number] Heparin Sod,Pork in 0.45% 61.497 183.299 NaCl 25,000 unit In 0.45 % NaCl 1 250ml.bag @ 8. 545 UNITS/KG/HR 10 mls/hr IV .Q24H [facility] Rx#: [id number] Oral 118 Output: Urine 3825 Other: Voiding Method Toilet Toilet Toilet - Labs CBC & Chem 7: 09/27/21 10:11 09/27/21 10:11 Labs: Abnormal Lab Results - Last 24 Hours (Table) 09/26/21 09/27/21 Range/Units 17:41 10:11 APTT 49.4 H (22.0-30.0) sec Carbon Dioxide 35 H (22-30) mmol/L Glucose 116 H (74-99) mg/dL
[2021-09-27 18:43] LABS: Chol/HDL Ratio 4.51 Ratio; LDL Cholesterol,Calculated 139.4 mg/dL (0.0-131.0)
[2021-09-28] MEDS: APIXABAN 5 MG TAB PO SCH ×2 (08:48→22:12)
[2021-09-28] MEDS: lisinopriL 20 MG TAB PO SCH (08:48)
[2021-09-28] MEDS: METOPROLOL SUCCINATE (ER) 50 MG TAB.ER.24H PO SCH (08:48)
[2021-09-28] MEDS: SPIRONOLACTONE 25 MG TAB PO SCH (08:48)
[2021-09-28] MEDS: ASPIRIN 81 MG PO SCH (08:48)
[2021-09-28] MEDS: FUROSEMIDE 10 MG/ML 4 ML VIAL IV SCH ×2 (08:49→22:12)
--- NOTE | 2021-09-28 08:57 | P.PN ---
Subjective Progress Note Date: 09/28/21 Principal diagnosis: Paroxysmal atrial fibrillation The patient is a pleasant 66-year-old gentleman who was admitted to the hospital with increasing shortness of breath and he was found to be in atrial fibrillation with RVR which was new to him and also he was diagnosed was card iomyopathy was EF at 25-30%. The patient was seen this morning. He stated that he is feeling better. The shortness of breath has improved. He continues to have significant bilateral lower extremities edema. He continues to be in atrial fibrillation was controlled heart rate. No symptoms of chest pain or chest discomfort and no dizziness or lightheadedness or presyncope or syncope. At this point I recommended continue the current medical regimen. Switch the patient to oral anticoagulation. Consider continue Lasix IV for additional 24 hours and continue monitor the kidney function and electrolytes and follow-up with the patient. Objective - Vital Signs Vital signs: Vital Signs Temp 97.5 F L 09/28/21 04:00 Pulse 91 09/28/21 04:00 Resp 18 09/28/21 04:00 BP 116/80 09/28/21 04:00 Pulse Ox 95 09/28/21 04:00 FiO2 Intake & Output 09/27/21 09/28/21 09/28/21 18:59 06:59 18:59 Output Total 975 Balance -975 Weight 108.5 kg Output: Urine 975 Other: Voiding Method Toilet Toilet Urinal - Constitutional General appearance: Present: no acute distress - Respiratory Respiratory: bilateral: CTA - Cardiovascular Rhythm: irregularly irregular Heart sounds: normal: S1, S2 - Labs CBC & Chem 7: 09/27/21 10:11 09/27/21 10:11 Labs: Abnormal Lab Results - Last 24 Hours (Table) 09/27/21 09/27/21 Range/Units 10:11 18:30 APTT 46.8 H (22.0-30.0) sec Carbon Dioxide 35 H (22-30) mmol/L Glucose 116 H (74-99) mg/dL Cholesterol 210.00 H (0.00-200.00) mg/dL LDL Cholesterol, Calc 139.4 H (0.0-131.0) mg/dL Assessment and Plan Assessment: Assessment #1 newly diagnosis cardiomyopathy, likely nonischemic, rule out severe CAD #2 atrial fibrillation with controlled heart rate. This is a new diagnosis the patient #3 hypertension #4 smoking Plan #1 continue Lasix IV for additional 24 hours #2 monitor the kidney function and electrolytes #3 DC heparin and start the patient on oral anticoagulation #4 follow-up with the patient
[2021-09-28 10:15] LABS: Basophils # (A) 0.1 k/uL (0-0.2); Basophils % (A) 1 %; Eosinophils # (A) 0.1 k/uL (0-0.7); Eosinophils % (A) 2 %; HCT 50.7 % (39.0-53.0); HGB 15.7 gm/dL (13.0-17.5); Hypochromasia Moderate; Lymphocytes # (A) 0.8 k/uL (1.0-4.8); Lymphocytes % (A) 14 %; MCH 29.7 pg (25.0-35.0); MCV 95.7 fL (80.0-100.0); Mean Platelet Volume 8.6; Monocytes # (A) 0.4 k/uL (0-1.0); Monocytes % (A) 6 %; Neutrophils # (A) 4.5 k/uL (1.3-7.7); Neutrophils % (A) 76 %; Platelet Count 200 k/uL (150-450); RBC 5.29 m/uL (4.30-5.90); RDW 14.2 % (11.5-15.5)
[2021-09-28 10:25] LABS: ALT 22 U/L (4-49); AST 33 U/L (17-59); African American GFR (CKD) >90 (>60 ml/min/1.73 sqM); Albumin 4.5 g/dL (3.5-5.0); Alkaline Phosphatase 94 U/L (38-126); Anion Gap 8 mmol/L; Blood Urea Nitrogen 16 mg/dL (9-20); Calcium 9.9 mg/dL (8.4-10.2); Carbon Dioxide 33 mmol/L (22-30); Chloride 98 mmol/L (98-107); Glucose 112 mg/dL (74-99); Non-African American GFR(CKD) >90 (>60 ml/min/1.73 sqM); Potassium 4.2 mmol/L (3.5-5.1); Sodium 139 mmol/L (137-145); Total Bilirubin 0.6 mg/dL (0.2-1.3); Total Protein 7.8 g/dL (6.3-8.2)
--- NOTE | 2021-09-28 13:29 | P.PN ---
Subjective Progress Note Date: 09/28/21 iMtul Rangel, a 66-year-old male who presented to [facility] emergency room with a chief complaint of worsening shortness of breath He was evaluated in the emergency room vital examination on presentation revealed a temperature of 98.5 pulse 142 respiration 20 blood pressure 107/83 pulse ox 96% on room air Laboratory data reveals a white blood count of 8.8 hemoglobin 14.2 platelet co unt 209 sodium 138 potassium 4.2 chloride 104 CO2 28 BUN 12 creatinine 0.75 troponin less than 0.012 Testing in the emergency room revealed CT angiogram of the chest revealed no acute pulmonary embolism, EKG revealed evidence of atrial fibrillation with rapid ventricular response patient was started on IV heparin and IV Cardizem. Patient was admitted to medical floor for further evaluation and treatment Objective - Vital Signs Vital signs: Vital Signs Temp 96.3 F L 09/28/21 08:00 Pulse 91 09/28/21 08:00 Resp 18 09/28/21 08:00 BP 121/82 09/28/21 08:00 Pulse Ox 97 09/28/21 08:00 FiO2 Intake & Output 09/27/21 09/28/21 09/28/21 18:59 06:59 18:59 Output Total 975 Balance -975 Weight 108.5 kg Output: Urine 975 Other: Voiding Method Toilet Toilet Toilet Urinal Urinal - Exam In general patient is alert and oriented x 3 in no distress HEENT head normocephalic and atraumatic Neck is supple no JVD no goiter no lymphadenopathy no carotid bruit Chest examination is clear to auscultation no crackles no wheezing Cardiac exam reveals irregular heart sounds S1 and S2, with tachycardia no gallops no murmurs Abdomen is soft nontender no organomegaly with normal bowel sounds Extremity exam reveals no edema no cyanosis or clubbing Neurological examination reveals no gross focal deficits - Labs CBC & Chem 7: 09/28/21 09:33 09/28/21 09:33 Labs: Abnormal Lab Results - Last 24 Hours (Table) 09/27/21 09/27/21 09/28/21 Range/Units 10:11 18:30 09:33 Lymphocytes # 0.8 L (1.0-4.8) k/uL APTT 46.8 H (22.0-30.0) sec Carbon Dioxide (22-30) mmol/L Glucose (74-99) mg/dL Cholesterol 210.00 H (0.00-200.00) mg/dL LDL Cholesterol, Calc 139.4 H (0.0-131.0) mg/dL 09/28/21 Range/Units 09:33 Lymphocytes # (1.0-4.8) k/uL APTT (22.0-30.0) sec Carbon Dioxide 33 H (22-30) mmol/L Glucose 112 H (74-99) mg/dL Cholesterol (0.00-200.00) mg/dL LDL Cholesterol, Calc (0.0-131.0) mg/dL Assessment and Plan Plan: New-onset atrial fibrillation with rapid ventricular response Shortness of breath with chest x-ray suggestive of acute exacerbation of congestive heart failure will check echocardiogram Underlying history of hypertension History of chronic tobacco use History of hearing impairment Patient is admitted to telemetry floor He was started on IV Lasix He was started on IV Cardizem and IV heparin in the emergency room Cardiology consultation was requested Home medications reviewed and reordered Will follow closely
--- NOTE | 2021-09-28 13:29 | P.PN ---
Subjective Progress Note Date: 09/27/21 Mitul Rangel, a 66-year-old male who presented to [facility] emergency room with a chief complaint of worsening shortness of breath He was evaluated in the emergency room vital examination on presentation revealed a temperature of 98.5 pulse 142 respiration 20 blood pressure 107/83 pulse ox 96% on room air Laboratory data reveals a white blood count of 8.8 hemoglobin 14.2 platelet co unt 209 sodium 138 potassium 4.2 chloride 104 CO2 28 BUN 12 creatinine 0.75 troponin less than 0.012 Testing in the emergency room revealed CT angiogram of the chest revealed no acute pulmonary embolism, EKG revealed evidence of atrial fibrillation with rapid ventricular response patient was started on IV heparin and IV Cardizem. Patient was admitted to medical floor for further evaluation and treatment On 09/27/2021 patient was seen and examined on the telemetry floor he is alert and oriented 3 in no apparent distress there is no fever or chills no headache or dizziness no chest pain no shortness of breath no cough no nausea or vomiting no abdominal pain no diarrhea no blood in the stools no burning with urination no frequency or urgency and no hematuria, patient admitted with atrial f ibrillation with rapid ventricular response, he remains on IV heparin, IV Cardizem was discontinued and patient is switched to oral medications, echocardiogram done and results are still pending will continue to follow. Objective - Vital Signs Vital signs: Vital Signs Temp 97.8 F 09/27/21 08:12 Pulse 81 09/27/21 12:48 Resp 16 09/27/21 08:12 BP 139/83 09/27/21 12:48 Pulse Ox 95 09/27/21 12:48 FiO2 Intake & Output 09/26/21 09/27/21 09/27/21 18:59 06:59 18:59 Intake Total 304.497 183.299 Output Total 3825 Balance 304.497 -3641.701 Weight 112.3 kg 111 kg Intake: Intake, IV Titration 186.497 183.299 Amount Diltiazem 125 mg In 125 Sodium Chloride 0.9% 100 ml @ Per Protocol IV .Q0M [facility] Rx#:[id number] Heparin Sod,Pork in 0.45% 61.497 183.299 NaCl 25,000 unit In 0.45 % NaCl 1 250ml.bag @ 8. 545 UNITS/KG/HR 10 mls/hr IV .Q24H [facility] Rx#: [id number] Oral 118 Output: Urine 3825 Other: Voiding Method Toilet Toilet Toilet - Exam In general patient is alert and oriented x 3 in no distress HEENT head normocephalic and atraumatic Neck is supple no JVD no goiter no lymphadenopathy no carotid bruit Chest examination is clear to auscultation no crackles no wheezing Cardiac exam reveals irregular heart sounds S1 and S2, with tachycardia no gallops no murmurs Abdomen is soft nontender no organomegaly with normal bowel sounds Extremity exam reveals no edema no cyanosis or clubbing Neurological examination reveals no gross focal deficits - Labs CBC & Chem 7: 09/28/21 09:33 09/28/21 09:33 Labs: Abnormal Lab Results - Last 24 Hours (Table) 09/26/21 09/27/21 Range/Units 17:41 10:11 APTT 49.4 H (22.0-30.0) sec Carbon Dioxide 35 H (22-30) mmol/L Glucose 116 H (74-99) mg/dL Assessment and Plan Plan: New-onset atrial fibrillation with rapid ventricular response Shortness of breath with chest x-ray suggestive of acute exacerbation of congestive heart failure will check echocardiogram Underlying history of hypertension History of chronic tobacco use History of hearing impairment Patient is admitted to telemetry floor He was started on IV Lasix He was started on IV Cardizem and IV heparin in the emergency room Cardiology consultation was requested Home medications reviewed and reordered Will follow closely
--- NOTE | 2021-09-28 13:50 | P.PN ---
Subjective Progress Note Date: 09/28/21 Mitul Rangel, a 66-year-old male who presented to [facility] emergency room with a chief complaint of worsening shortness of breath He was evaluated in the emergency room vital examination on presentation revealed a temperature of 98.5 pulse 142 respiration 20 blood pressure 107/83 pulse ox 96% on room air Laboratory data reveals a white blood count of 8.8 hemoglobin 14.2 platelet co unt 209 sodium 138 potassium 4.2 chloride 104 CO2 28 BUN 12 creatinine 0.75 troponin less than 0.012 Testing in the emergency room revealed CT angiogram of the chest revealed no acute pulmonary embolism, EKG revealed evidence of atrial fibrillation with rapid ventricular response patient was started on IV heparin and IV Cardizem. Patient was admitted to medical floor for further evaluation and treatment On 09/27/2021 patient was seen and examined on the telemetry floor he is alert and oriented 3 in no apparent distress there is no fever or chills no headache or dizziness no chest pain no shortness of breath no cough no nausea or vomiting no abdominal pain no diarrhea no blood in the stools no burning with urination no frequency or urgency and no hematuria, patient admitted with atrial f ibrillation with rapid ventricular response, he remains on IV heparin, IV Cardizem was discontinued and patient is switched to oral medications, echocardiogram done and results are still pending will continue to follow. On 09/28/2021 patient was seen and examined on the medical floor he is alert and oriented 3 in no apparent distress there is no fever or chills no headache or dizziness no chest pain no shortness of breath no cough no nausea or vomiting no abdominal pain no diarrhea no blood in the stools no burning with urination no frequency or urgency and no hematuria, echocardiogram results show significantly decreased ejection fraction down to 20-25% patient was evaluated today by card iology he is switched to oral Eliquis, he was not cleared for discharge yet. Objective - Vital Signs Vital signs: Vital Signs Temp 96.3 F L 09/28/21 08:00 Pulse 91 09/28/21 08:00 Resp 18 09/28/21 08:00 BP 121/82 09/28/21 08:00 Pulse Ox 97 09/28/21 08:00 FiO2 Intake & Output 09/27/21 09/28/21 09/28/21 18:59 06:59 18:59 Output Total 975 Balance -975 Weight 108.5 kg Output: Urine 975 Other: Voiding Method Toilet Toilet Toilet Urinal Urinal - Exam In general patient is alert and oriented x 3 in no distress HEENT head normocephalic and atraumatic Neck is supple no JVD no goiter no lymphadenopathy no carotid bruit Chest examination is clear to auscultation no crackles no wheezing Cardiac exam reveals irregular heart sounds S1 and S2, with tachycardia no gallops no murmurs Abdomen is soft nontender no organomegaly with normal bowel sounds Extremity exam reveals no edema no cyanosis or clubbing Neurological examination reveals no gross focal deficits - Labs CBC & Chem 7: 09/28/21 09:33 09/28/21 09:33 Labs: Abnormal Lab Results - Last 24 Hours (Table) 09/27/21 09/27/21 09/28/21 Range/Units 10:11 18:30 09:33 Lymphocytes # 0.8 L (1.0-4.8) k/uL APTT 46.8 H (22.0-30.0) sec Carbon Dioxide (22-30) mmol/L Glucose (74-99) mg/dL Cholesterol 210.00 H (0.00-200.00) mg/dL LDL Cholesterol, Calc 139.4 H (0.0-131.0) mg/dL 09/28/21 Range/Units 09:33 Lymphocytes # (1.0-4.8) k/uL APTT (22.0-30.0) sec Carbon Dioxide 33 H (22-30) mmol/L Glucose 112 H (74-99) mg/dL Cholesterol (0.00-200.00) mg/dL LDL Cholesterol, Calc (0.0-131.0) mg/dL Assessment and Plan Plan: New-onset atrial fibrillation with rapid ventricular response Shortness of breath with chest x-ray suggestive of acute exacerbation of congestive heart failure will check echocardiogram Underlying history of hypertension History of chronic tobacco use History of hearing impairment Patient is admitted to telemetry floor He was started on IV Lasix He was started on IV Cardizem and IV heparin in the emergency room Cardiology consultation was requested Home medications reviewed and reordered Will follow closely
[2021-09-29 04:45] VITALS: RESP 16
--- NOTE | 2021-09-29 07:11 | P.PN ---
Subjective Progress Note Date: 09/29/21 Principal diagnosis: Paroxysmal atrial fibrillation The patient is a pleasant 66-year-old gentleman who was admitted to the hospital with increasing shortness of breath and he was found to be in atrial fibrillation with RVR which was new to him and also he was diagnosed was card iomyopathy was EF at 25-30%. He was started on anticoagulation. Also he was started on medications for cardiomyopathy. He was seen this morning. He is feeling better. The shortness of breath has improved. The lower extremities edema has improved as well. He continues to be in atrial fibrillation with controlled heart rate. He would like to be discharged home. With that being seated going to DC the Lasix IV and start the patient on Lasix by mouth. Beside that continue the current medical regimen including the current dose of beta anthony as well as Aldactone. I'll follow-up with the patient in a week. To undergo a heart catheterization to rule out severe CAD. Objective - Vital Signs Vital signs: Vital Signs Temp 97.6 F 09/29/21 04:00 Pulse 73 09/29/21 04:00 Resp 16 09/29/21 04:00 BP 109/78 09/29/21 04:00 Pulse Ox 95 09/29/21 04:00 FiO2 Intake & Output 09/28/21 09/29/21 09/29/21 18:59 06:59 18:59 Intake Total 237 Output Total 900 3100 Balance -900 -2863 Weight 106.6 kg Intake: Oral 237 Output: Urine 900 3100 Other: Voiding Method Toilet Toilet Urinal Urinal - Constitutional General appearance: Present: no acute distress - Respiratory Respiratory: bilateral: CTA - Cardiovascular Rhythm: irregularly irregular Heart sounds: normal: S1, S2 - Labs CBC & Chem 7: 09/28/21 09:33 09/28/21 09:33 Labs: Abnormal Lab Results - Last 24 Hours (Table) 09/28/21 09/28/21 Range/Units 09:33 09:33 Lymphocytes # 0.8 L (1.0-4.8) k/uL Carbon Dioxide 33 H (22-30) mmol/L Glucose 112 H (74-99) mg/dL Assessment and Plan Assessment: Assessment #1 newly diagnosis cardiomyopathy, likely nonischemic, rule out severe CAD #2 atrial fibrillation with controlled heart rate. This is a new diagnosis the patient #3 hypertension #4 smoking Plan #1 DC Lasix IV and start the patient on Lasix by mouth #2 continue current medical regimen for cardiomyopathy #3 the patient can be discharged home
[2021-09-29] MEDS: lisinopriL 20 MG TAB PO SCH (09:34)
[2021-09-29] MEDS: SPIRONOLACTONE 25 MG TAB PO SCH (09:34)
[2021-09-29] MEDS: METOPROLOL SUCCINATE (ER) 50 MG TAB.ER.24H PO SCH (09:34)
[2021-09-29] MEDS: ASPIRIN 81 MG PO SCH (09:34)
[2021-09-29] MEDS: FUROSEMIDE 40 MG TAB PO SCH ×2 (09:34→13:58)
[2021-09-29] MEDS: APIXABAN 5 MG TAB PO SCH (09:34)
[2021-09-29 11:08] VITALS: TEMP 96.4
[2021-09-29 12:25] VITALS: BP 113/80; PULSE 76
--- NOTE | 2021-09-29 12:49 | P.DS ---
Providers Date of admission: 09/25/21 15:00 Expected date of discharge: 09/29/21 Attending physician: Miriam Benedict Consults: 09/25/21 14:57 Consult Physician Routine Consulting Provider: [facility] Consult Reason/Comments: new onset atrial fibrillation with rvr Do you want consulting provider notified?: Yes, Notify in am Primary care physician: Miriam Benedict [facility] Course: Diagnosis on Discharge: New-onset atrial fibrillation with rapid ventricular response New onset Cardiomyopathy, EF 20-25 % Shortness of breath with chest x-ray suggestive of acute exacerbation of congestive heart failure will check echocardiogram Underlying history of hypertension History of chronic tobacco use History of hearing impairment Hospital course: Mitul Rangel, a 66-year-old male who presented to [facility] emergency room with a chief complaint of worsening shortness of breath He was evaluated in the emergency room vital examination on presentation revealed a temperature of 98.5 pulse 142 respiration 20 blood pressure 107/83 pulse ox 96% on room air Laboratory data reveals a white blood count of 8.8 hemoglobin 14.2 platelet count 209 sodium 138 potassium 4.2 chloride 104 CO2 28 BUN 12 creatinine 0.75 troponin less than 0.012 Testing in the emergency room revealed CT angiogram of the chest revealed no acute pulmonary embolism, EKG revealed evidence of atrial fibrillation with rapid ventricular response patient was started on IV heparin and IV Cardizem. Patient was admitted to medical floor for further evaluation and treatment On 09/27/2021 patient was seen and examined on the telemetry floor he is alert and oriented 3 in no apparent distress there is no fever or chills no headache or dizziness no chest pain no shortness of breath no cough no nausea or vomiting no abdominal pain no diarrhea no blood in the stools no burning with urination no frequency or urgency and no hematuria, patient admitted with atrial fibrillation with rapid ventricular response, he remains on IV heparin, IV Cardizem was discontinued and patient is switched to oral medications, echocardiogram done and results are still pending will continue to follow. On 09/28/2021 patient was seen and examined on the medical floor he is alert and oriented 3 in no apparent distress there is no fever or chills no headache or dizziness no chest pain no shortness of breath no cough no nausea or vomiting no abdominal pain no diarrhea no blood in the stools no burning with urination no frequency or urgency and no hematuria, echocardiogram results show significantly decreased ejection fraction down to 20-25% patient was evaluated today by cardiology he is switched to oral Eliquis, he was not cleared for discharge yet. On 09/29/2021 patient was seen and examined on the medical floor he is alert and oriented 3 in no apparent distress he is feeling better he denies any symptoms at this time there is no fever or chills no headache or dizziness no chest pain no shortness of breath no cough no nausea or vomiting no abdominal pain no diarrhea no blood in the stools no burning with urination no frequency or urgency no hematuria. Patient was evaluated by cardiology Dr. Begum today he was cleared for discharge patient will be followed in our office and by senior accounting associate within 1 week he will be readmitted for cardiac catheterization in the next 1-2 weeks Patient Condition at Discharge: Stable Plan - Discharge Summary Discharge Rx Participant: No New Discharge Prescriptions: New Rivaroxaban [Xarelto] 20 mg PO DAILY #30 tab Metoprolol Succinate (ER) [Toprol XL] 75 mg PO DAILY tab Spironolactone [Aldactone] 25 mg PO DAILY tab Aspirin 81 mg PO DAILY tab Furosemide [Lasix] 40 mg PO BID@0900,1600 tab lisinopriL [Zestril] 20 mg PO DAILY tab Discontinued hydroCHLOROthiazide 12.5 mg PO DAILY amLODIPine [Norvasc] 5 mg PO DAILY lisinopriL 40 mg PO DAILY Discharge Medication List Rivaroxaban [Xarelto] 20 mg PO DAILY #30 tab 09/26/21 [Rx] Aspirin 81 mg PO DAILY tab 09/29/21 [Rx] Furosemide [Lasix] 40 mg PO BID@0900,1600 tab 09/29/21 [Rx] Metoprolol Succinate (ER) [Toprol XL] 75 mg PO DAILY tab 09/29/21 [Rx] Spironolactone [Aldactone] 25 mg PO DAILY tab 09/29/21 [Rx] lisinopriL [Zestril] 20 mg PO DAILY tab 09/29/21 [Rx] Follow up Appointment(s)/Referral(s): Didier Begum MD [STAFF PHYSICIAN] - 1 Week Miriam Benedict MD [Primary Care Provider] - 1-2 days Activity/Diet/Wound Care/Special Instructions: Xarelto copay is $38.70
== END 2021-09-29 14:19 | disposition home or self-care (01) | DRG 291 ==
LOC: EC 11:13 → 3SCARD 15:00
PROVIDERS: ADMIT Internal Medicine; ATTEND Internal Medicine
DX: I11.0 Hypertensive heart disease with heart failure (principal); I50.21 Acute systolic (congestive) heart failure; I48.0 Paroxysmal atrial fibrillation; I42.8 Other cardiomyopathies; H91.90 Unspecified hearing loss, unspecified ear; F17.210 Nicotine dependence, cigarettes, uncomplicated; Z79.899 Other long term (current) drug therapy; Z87.19 Personal history of other diseases of the digestive system; Z82.49 Family history of ischemic heart disease and other diseases of the circulatory system
CPT/HCPCS: 36415; 71046; 71275; 80048; 80053; 80061; 81003; 83735; 83880; 84439; 84443; 84481; 84484; 85025; 85379; 85610; 85730; 93005; 93306; 96365; 96366; 96368; 99285

== ENCOUNTER 2021-11-08 07:16 | Day surgery (SDC) | payer MEDICARE ==
[2021-11-06 16:20] VITALS: BMI 33.0
[2021-11-08] MEDS ORDERED: SODIUM CHLORIDE 0.9% 1,000 ML IV SCH (07:23)
[2021-11-08] MEDS ORDERED: LACTATED RINGERS 1,000 ML IV SCH (07:23)
[2021-11-08] MEDS ORDERED: SODIUM CHLORIDE 0.9% 1,000 ML IV ONE ×2 (07:36→09:51)
[2021-11-08 07:46] VITALS: TEMP 98.9
[2021-11-08 07:55] LABS: Glucose,Whole Blood 121 mg/dL (70-110)
[2021-11-08 08:08] LABS: African American GFR (CKD) >90 (>60 ml/min/1.73 sqM); Anion Gap 13 mmol/L; Blood Urea Nitrogen 25 mg/dL (9-20); Calcium 9.6 mg/dL (8.4-10.2); Carbon Dioxide 23 mmol/L (22-30); Chloride 101 mmol/L (98-107); Glucose 121 mg/dL (74-99); Non-African American GFR(CKD) >90 (>60 ml/min/1.73 sqM); Potassium 5.3 mmol/L (3.5-5.1); Sodium 137 mmol/L (137-145)
[2021-11-08] MEDS ORDERED: BENZOCAINE SPRAY 1 CAN TOPICAL ONE (08:53)
[2021-11-08] MEDS ORDERED: LIDOCAINE 2% INJ 20 MG/ML (2 ML VIAL) ONE (08:54)
[2021-11-08] MEDS ORDERED: PROPOFOL 10 MG/ML 20 ML VIAL IV ONE (08:54)
--- NOTE | 2021-11-08 09:31 | P.PCN ---
Date of Procedure: 11/08/21 Operative Findings: TRANSESOPHAGEAL ECHOCARDIOGRAM MIXER WHIPPED TOPPING: CHERELLE POST MD, RPVI INDICATION: Rule out intracardiac thrombus before cardioversion SEDATION: Conscious sedation COMPLICATION: None LEVEL OF SEDATION The procedure was performed using propofol FLASK CLEANER PROCEDURE DESCRIPTION: After obtaining an informed consent, the patient was brought to the recovery room. Pulse oximetry and heart monitors were attached to the patient. The patient throat was sprayed using lidocaine. The patient was turned into left lateral position. After that a bite guard was placed. After an appropriate conscious sedation was initiated, the transesophageal echocardiogram was advanced through a bite guard into the mid esophagus. A 2-D echocardiogram images, color Doppler images, continuous wave images, pulse-wave images, of various cardiac structure were performed. After that the transesophageal echocardiogram probe was advanced into the stomach and fixed to obtain transgastric view was. The probe was brought into the mid esophagus. Inter-atrial septum was interrogated using 2D images, color Doppler images, and then contrast study. After that transesophageal echocardiogram was withdrawn out and upon withdrawing the descending thoracic aorta all the way up to the arch was evaluated. FINDING: The left ventricle appears to be dilated. The left ventricular systolic function appeared to be impaired with an ejection fraction around 15% with global hypokinesia. The left atrium appears to be dilated. Left atrial appendage appeared to be free from any thrombus. The interatrial septum appears to be intact. The aortic valve is trileaflet valve without stenosis with mitral insufficiency. The mitral valve is mildly thickened with moderate MR. There is mild tricuspid regurgitation seen. No evidence of pericardial effusion identified CONCLUSION: 1. Intact left atrial appendage without any evidence of thrombus 2. Normal interatrial septum 3. Impaired LV function was EF around 20% with global hypokinesia 4. Moderate mitral regurgitation 5. Mild aortic insufficiency 6. No evidence of pericardial effusion
--- NOTE | 2021-11-08 09:32 | P.PCN ---
Date of Procedure: 11/08/21 Operative Findings: Cardioversion Report Performing physician Didier Begum M.D. Procedure performed Successful cardioversion of atrial fibrillation to normal sinus mechanism using 200 J at first attempt Indication Symptomatic atrial fibrillation in the 66-year-old gentleman who was diagnosed with severe cardiomyopathy with EF of 15-20% Complication None Level of sedation The procedure was performed under deep sedation using propofol with QA ARCHITECT in the room Procedure description After obtaining an informed consent the patient was brought to the recovery room. Transesophageal echocardiogram was performed and no evidence of intracardiac thrombus was identified. The report of the KEESHA was dictated Sedation was introduced using propofol with QA ARCHITECT in the room. Subsequently the patient cardioverted from atrial fibrillation to normal sinus mechanism using 200 J and first attempt Conclusion Successful cardioversion of atrial fibrillation to normal sinus mechanism using 200 J Postprocedure management Continue the current medical regimen Continue oral anticoagulation Follow-up with the patient
[2021-11-08 11:01] VITALS: RESP 16
[2021-11-08 11:36] VITALS: BP 101/60; PULSE 52
== END 2021-11-08 11:37 | disposition home or self-care (01) ==
LOC: CATHCVL 07:16
PROVIDERS: ATTEND Internal Medicine Interventional Cardiology
DX: I08.0 Rheumatic disorders of both mitral and aortic valves (principal); I42.9 Cardiomyopathy, unspecified; I48.19 Other persistent atrial fibrillation; I10 Essential (primary) hypertension; E78.5 Hyperlipidemia, unspecified; E66.3 Overweight; Z68.33 Body mass index [BMI] 33.0-33.9, adult; Z79.82 Long term (current) use of aspirin; Z79.899 Other long term (current) drug therapy
CPT/HCPCS: 93312; 93320; 93325; 92960; 80048; 87635; J2704; J2001

== ENCOUNTER 2021-12-26 05:57 | Day surgery (SDC) | payer MEDICARE ==
[2021-12-25 08:34] VITALS: BMI 33.0
[2021-12-26] MEDS ORDERED: LACTATED RINGERS 1,000 ML IV SCH (06:02)
[2021-12-26] MEDS ORDERED: SODIUM CHLORIDE 0.9% 1,000 ML IV SCH (06:02)
[2021-12-26 06:32] VITALS: TEMP 98.2
[2021-12-26 07:00] LABS: Calcium 9.1 mg/dL (8.4-10.2); Potassium 5.2 mmol/L (3.5-5.1)
[2021-12-26] MEDS ORDERED: LIDOCAINE 2% INJ 20 MG/ML (2 ML VIAL) ONE (07:30)
[2021-12-26] MEDS ORDERED: PROPOFOL 10 MG/ML 20 ML VIAL IV ONE (07:30)
--- NOTE | 2021-12-26 07:47 | P.PCN ---
Date of Procedure: 12/26/21 Operative Findings: Cardioversion Report Performing physician Didier Begum M.D. Procedure performed Successful cardioversion of atrial fibrillation to normal sinus mechanism using 200 J at first attempt Indication Symptomatic atrial fibrillation Complication None Level of sedation The procedure was performed under deep sedation using propofol with MIRROR MACHINE FEEDER in the room Procedure description After obtaining an informed consent the patient was brought to the recovery room. Sedation was introduced using propofol with MIRROR MACHINE FEEDER in the room. Subsequently the patient cardioverted from atrial fibrillation to normal sinus mechanism using 200 J and first attempt Conclusion Successful cardioversion of atrial fibrillation to normal sinus mechanism using 200 J Postprocedure management Continue the current medical regimen Continue oral anticoagulation Follow-up with the patient
[2021-12-26] MEDS ORDERED: IV FLUID CONTINUATION 1,000 ML IV ONE (07:48)
[2021-12-26 17:33] VITALS: BP 131/78; PULSE 52; RESP 16
== END 2021-12-26 09:17 | disposition home or self-care (01) ==
LOC: CATHCVL 05:57
PROVIDERS: ATTEND Internal Medicine Interventional Cardiology
DX: I48.11 Longstanding persistent atrial fibrillation (principal); I10 Essential (primary) hypertension; E78.5 Hyperlipidemia, unspecified; F17.200 Nicotine dependence, unspecified, uncomplicated
CPT/HCPCS: 92960; 80048; J2704; J2001

== ENCOUNTER 2022-01-07 06:20 | Day surgery (SDC) | payer MEDICARE ==
[~2022-01-07 06:20] MED LIST changes: +ALPRAZolam 0.25 MG TAB PO PRN; +ALPRAZolam 0.5 MG TAB PO PRN; +ASPIRIN 325 MG TAB PO STA; +ATORVASTATIN 80 MG TAB PO STA; +HEPARIN SODIUM,PORCINE 10,000 UNIT in SODIUM CHLORIDE 0.9% 1,000 ML IRRIGATION PRN; +HEPARIN SODIUM,PORCINE 2,500 UNIT in SODIUM CHLORIDE 0.9% 250 ML IRRIGATION PRN; -LACTATED RINGERS 1,000 ML IV SCH; -LIDOCAINE 1% 20 ML VIAL (10MG/ML) FOR IV START INTRADERMA PRN; +NITROGLYCERIN SL TABS 0.4 MG TAB SUBLINGUAL PRN; +SODIUM CHLORIDE 0.9% 1,000 ML in EMPTY BAG 1 BAG IV ONE
[2022-01-07] MEDS ORDERED: SODIUM CHLORIDE 0.9% 1,000 ML IV ONE (07:03)
[2022-01-07 07:20] VITALS: TEMP 98.2
[2022-01-07] MEDS ORDERED: MIDAZOLAM 2 MG/2 ML VIAL IV ONE ×2 (09:30→09:37)
[2022-01-07] MEDS ORDERED: LIDOCAINE 1% INJ 10MG/ML (30 ML VIAL-PF) SQ ONE (09:31)
[2022-01-07] MEDS ORDERED: VERAPAMIL SYRINGE (5 MG/10 ML) INTRAARTER ONE (09:33)
[2022-01-07] MEDS ORDERED: HEPARIN SODIUM 1,000 UN/ML (10ML VL) IV ONE (09:37)
[2022-01-07] MEDS ORDERED: RX INFO: IV CONTRAST WAS GIVEN 1 EACH MISC MISCELLANE PRN (09:46)
--- NOTE | 2022-01-07 09:50 | P.PCN ---
Date of Procedure: 01/07/22 Operative Findings: CARDIAC CATHETERIZATION PERFORMING PHYSICIAN: Didier Begum MD, RPVI PROCEDURE PERFORMED: 1. Selective right and left coronary angiogram 2. Left heart catheterization 3. Ultrasound-guided access of the right radial artery INDICATION: This is a 66-year-old gentleman who was diagnosed recently was cardiomyopathy. The heart catheterization is to rule out severe underlying coronary artery disease COMPLICATION: None APPROACH: Right radial artery LEVEL OF SEDATION: Moderate with a sedation length of 17 minutes PROCEDURE DESCRIPTION: After obtaining an informed consent, the patient was brought to cardiac open hearth furnace laborer. Local anesthesia was performed using lidocaine subcutaneously. The right radial artery was cannulated using Seldinger technique, the guidewire passed easily, following that we advanced a 5-Vietnamese sheath dilator assembly, the wire and dilator were removed and sheath was flushed. Following that, 2 mg of verapamil along with 5000 unit heparin were given. Selective right and left coronary angiogram using a 6-Vietnamese JR4 and JL 3.5 catheters. Following that we did left heart catheterization using 6-Vietnamese pigtail catheter. The procedure was completed there was no complication. SELECTIVE CORONARY ANGIOGRAM: The right coronary artery: Large caliber vessel and a dominant vessel. The RCA is angiographically normal. Distally bifurcates into PDA and PLV branches both appeared to be angiographically normal Left main: Is angiographically normal. Bifurcates into LCx and LAD The left circumflex: Large caliber vessel codominant vessel. The LCx system is angiographically normal. It gives rises into the first and second obtuse marginal branches both appeared to be angiographically normal The left anterior descending artery: Large caliber vessel. The proximal LAD has mild disease only. The mid and distal LAD appeared to be angiographically normal. The LAD gives rise into diagonal branch which appeared to be angiographically normal. HEMODYNAMICS: The LVEDP was 15 mmHg was no significant gradient across aortic valve CONCLUSION: 1. Mild disease involving the proximal LAD 2. Mildly elevated LVEDP POSTPROCEDURE MANAGEMENT: Medical treatment and follow-up with the patient
[2022-01-07] MEDS ORDERED: SODIUM CHLORIDE 0.9% 1,000 ML IV SCH (10:00)
[2022-01-07 17:50] VITALS: BP 134/71; PULSE 49; RESP 16
== END 2022-01-07 15:03 | disposition home or self-care (01) ==
LOC: CATHCVL 06:20
PROVIDERS: ATTEND Internal Medicine Interventional Cardiology
DX: I25.10 Atherosclerotic heart disease of native coronary artery without angina pectoris (principal); I50.22 Chronic systolic (congestive) heart failure; I11.0 Hypertensive heart disease with heart failure; E78.5 Hyperlipidemia, unspecified; F17.200 Nicotine dependence, unspecified, uncomplicated; I42.9 Cardiomyopathy, unspecified
CPT/HCPCS: 93458; 76937; C1769; C1894; J2250; J2001; J1644

== ENCOUNTER 2022-01-10 20:22 | Emergency (ER) | payer MEDICARE ==
[2022-01-10 20:28] VITALS: RESP 18; TEMP 97.8
[2022-01-10] MEDS ORDERED: DIPH,PERTUS(ACELL)TETVAC-LF 0.5 ML VIAL IM ONE (21:10)
--- NOTE | 2022-01-10 21:33 | CT ---
EXAMINATION TYPE: CT brain wo con CT DLP: 1184.8 mGycm, Automated exposure control for dose reduction was used. DATE OF EXAM: 01/10/2022 9:26 PM COMPARISON: None CLINICAL INDICATION:Male, 66 years old with history of Head trauma, on thinners, Head trauma/fall on blood thinners TECHNIQUE: Brain: Axial CT images of the brain were obtained with coronal and sagittal reformats created and rev iewed. Contrast used: None. Oral contrast used: None. FINDINGS: Brain: Extra-axial spaces: No abnormal extra-axial fluid collections. Ventricular system: Within normal limits Cerebral parenchyma: No acute intraparenchymal hemorrhage or mass effect. The baig-white junction is well differentiated. Cerebellum: Unremarkable. Mass effect: No evidence of midline shift. Intracranial vasculature: unremarkable Soft tissues: Right scalp hematoma measuring 6.0 x 1.6 cm. Calvarium/osseous structures: No depressed skull fracture. Paranasal sinuses and mastoid air cells: Mild scattered paranasal sinus disease. Visualized orbits: Orbital contents are intact. IMPRESSION: 1. No acute intracranial process. 2. Right scalp hematoma.
--- NOTE | 2022-01-10 21:52 | ED ---
General Adult HPI - General Chief complaint: Fall Stated complaint: head injury Time Seen by Provider: 01/10/22 20:55 Source: patient Mode of arrival: ambulatory Limitations: no limitations - History of Present Illness Initial comments: This is a 66-year-old male with a past medical history including atrial fibrillation on Xarelto presents emergency department via EMS after a head injury and scalp laceration. The patient stated that he was bending down to feed the cat when he stood up and hit his head on the edge of a cabinet. The patient stated that when he stood up he noted that there was a lot of blood coming from his head and his was concerned because EMS. The patient stated that he did not pass out. The patient denied any other trauma. The patient did report that he had alcohol earlier today but was able to answer all questions appropriate. The patient denied any other acute pain or complaints at this time. - Related Data Home Medications Medication Instructions Recorded Confirmed Metoprolol Succinate [Toprol XL] 100 mg PO DAILY 11/06/21 01/07/22 Amiodarone HCl [Pacerone] 200 mg PO BID 12/25/21 01/07/22 Previous Rx's Medication Instructions Recorded Rivaroxaban [Xarelto] 20 mg PO DAILY #30 tab 09/26/21 Aspirin 81 mg PO DAILY tab 09/29/21 Furosemide [Lasix] 40 mg PO BID@0900,1600 tab 09/29/21 Spironolactone [Aldactone] 25 mg PO DAILY tab 09/29/21 lisinopriL [Zestril] 20 mg PO DAILY tab 09/29/21 Allergies Allergy/AdvReac Type Severity Reaction Status Date / Time No Known Allergies Allergy Verified 01/10/22 20:28 Review of Systems ROS Statement: Those systems with pertinent positive or pertinent negative responses have been documented in the HPI. ROS Other: All systems not noted in ROS Statement are negative. Past Medical History Past Medical History: Atrial Fibrillation, Hearing Disorder / Deafness, Hypertension, Sleep Apnea/CPAP/BIPAP Additional Past Medical History / Comment(s): currently has cold symptoms, [place] ears,POSSIBLE SLEEP APNEA-NO CPAP History of Any Multi-Drug Resistant Organisms: None Reported Past Surgical History: Heart Catheterization Additional Past Surgical History / Comment(s): umbilical. COLONOSCOPY Past Anesthesia/Blood Transfusion Reactions: No Reported Reaction Past Psychological History: No Psychological Hx Reported Smoking Status: Former smoker Past Alcohol Use History: Rare Past Drug Use History: None Reported - Past Family History Mother Family Medical History: Unable to Obtain Additional Family Medical History / Comment(s): states was not raised with parents so unable to give family history Brother(s) Family Medical History: AFIB, Congestive Heart Failure (CHF) Additional Family Medical History / Comment(s): PT. STATES HE JUST FOUND OUT HIS TWIN BROTHER ALSO HAS CARDIAC ISSUES General Exam Limitations: no limitations General appearance: alert, in no apparent distress Head exam: Present: other (Large amount of dried blood on the face, large Ates and medial laceration noted to the right side of the scalp in a flap-like manner/semicircular fashion) Eye exam: Present: normal appearance, PERRL, EOMI ENT exam: Present: normal exam, normal oropharynx, mucous membranes moist Neck exam: Present: normal inspection, full ROM Respiratory exam: Present: normal lung sounds bilaterally Cardiovascular Exam: Present: regular rate, normal rhythm, normal heart sounds GI/Abdominal exam: Present: soft, normal bowel sounds Extremities exam: Present: normal inspection, full ROM Back exam: Present: normal inspection, full ROM Neurological exam: Present: alert, oriented X3, CN II-XII intact Psychiatric exam: Present: normal affect, normal mood Skin exam: Present: warm, dry Course Vital Signs 01/10/22 01/10/22 01/10/22 20:25 21:27 21:41 Temperature 97.8 F Pulse Rate 68 65 63 Respiratory 18 Rate Blood Pressure 196/100 131/79 O2 Sat by Pulse 94 L 92 L Oximetry Procedures - Laceration Laceration #1 Consent Obtained: verbal consent Indication: laceration Site: scalp Size (cm): 8 Description: flap Depth: simple, single layer Sedation/Analgesia: none Number of Sutures: 17 (Katelyn) Patient Tolerated Procedure: well Additional Comments: Katelyn Medical Decision Making - Medical Decision Making The patient seen and evaluated in the emergency department. Physical exam, the patient's wound was thoroughly cleaned the patient did receive a tetanus booster. Vital signs were stable on admission. Due to the nature of the patient's head injury, a CT of the head was obtained. CT head showed no intracranial hemorrhage or any acute pathology. The patient did have some minor slow bleeding from the laceration and the patient did receive 17 katelyn in order to assist with the cessation of bleeding. The patient tolerated the procedure well and the note is as attached on the chart. Patient was intoxicated however did have a ride home. The patient did continue to remain stable and the wound was within normal limits and closed properly. The patient was deemed safe for discharge and to follow up in the emergency department for further workup and evaluation and staple removal. The patient is also advised to follow-up with his primary care for further workup and evaluation. The patient was agreeable to this illness were answered. The patient was discharged home in stable condition. 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
[2022-01-10 22:37] VITALS: BP 112/65; PULSE 64
== END 2022-01-10 22:42 | disposition home or self-care (01) ==
LOC: SUPCPDRO 20:22 → EC 20:22
DX: S01.01XA Laceration without foreign body of scalp, initial encounter (principal); Z23 Encounter for immunization; Z79.01 Long term (current) use of anticoagulants; I48.91 Unspecified atrial fibrillation; I10 Essential (primary) hypertension; Z87.891 Personal history of nicotine dependence; Z79.82 Long term (current) use of aspirin; W22.8XXA Striking against or struck by other objects, initial encounter
CPT/HCPCS: 12004; 70450; 90471; 90715; 99284